=== PATIENT | female | born 1985 | race Caucasian/White ===

== ENCOUNTER → 2022-07-03 | Outpatient (REF) | payer MEDICAID | LOC: M LAB REF 12:13 | PROVIDERS: ATTEND Physician Assistant | DX: J02.9 Acute pharyngitis, unspecified (principal) ==

== ENCOUNTER → 2024-08-30 | Outpatient (CLI) | payer OTHER | LOC: M WHC 14:55 | PROVIDERS: ATTEND Specialist | DX: N92.0 Excessive and frequent menstruation with regular cycle (principal) ==

== ENCOUNTER 2025-01-24 08:43 | Day surgery (SDC) | payer OTHER ==
[~2025-01-24] VITALS: Ht 185.4 cm; Wt 80.9 kg
[~2025-01-24 08:43] MED LIST: IMIT50TA PO; KETOROLAC 30 MG/ML 1 ML VIAL As Ordered ONE; LIDOCAINE 2% 100 MG/5 ML SDV (FOR ANES.) As Ordered ONE; ONDANSETRON 4MG 2ML VIAL As Ordered ONE; dexAMETHasone 4 MG/ML 1 ML VIAL As Ordered ONE
[2025-01-24 09:16] LABS: PLATELET COUNT, AUTOMATED 303 10^3/uL (150-450)
[2025-01-24] MEDS ORDERED: LR 1,000 ML IV SCH ×2 (09:20→11:10)
[2025-01-24] MEDS ORDERED: MIDAZOLAM INJ 2 MG/2 ML VIAL As Ordered ONE (09:31)
[2025-01-24] MEDS ORDERED: ACETAMINOPHEN 1000MG/100ML IV BAG As Ordered ONE (10:40)
[2025-01-24] MEDS ORDERED: ONDANSETRON 4MG 2ML VIAL IV PRN (11:10)
[2025-01-24] MEDS ORDERED: HYDROMORPHONE HCL 0.5 MG/0.5 ML SYRINGE IV PRN (11:10)
[2025-01-24 12:04] VITALS: BP 118/57; TEMP 97.6; O2SAT 98
== END 2025-01-24 12:20 | disposition home or self-care (01) ==
LOC: M SDC 08:43
PROVIDERS: ATTEND Specialist
DX: N84.0 Polyp of corpus uteri (principal); N92.0 Excessive and frequent menstruation with regular cycle; N81.6 Rectocele; G43.909 Migraine, unspecified, not intractable, without status migrainosus; Z87.891 Personal history of nicotine dependence; Z79.899 Other long term (current) drug therapy
CPT/HCPCS: 36415; 58558; 81025; 85027; 86850; 86900; 86901; 88305; J0131; J1100; J1885; J2250; J2405; J3010